=== PATIENT | female | born 1985 | race Caucasian/White ===

== ENCOUNTER 2023-04-27 18:15 | Emergency (ER) | payer OTHER, SELFPAY ==
--- NOTE | ~2023-04-27 | CT_ITS ---
EXAMINATION: CT brain wo con INDICATION: Headache COMPARISON: None TECHNIQUE: Standard unenhanced head CT. The dose-length product (DLP) was 605.33 mGy-cm. The mA was a djusted according to patient size. Iterative reconstruction technique was employed. FINDINGS: There is no intracranial hemorrhage, acute infarction, or abnormal mass lesion. The ventric les are normal. There is no abnormal mass effect or midline shift. The tyson-white matter differentiat ion is normal. The basal cisterns are patent. The orbits are normal. The paranasal sinuses, mastoids and calvarium are normal. IMPRESSION: 1. No acute intracranial abnormality. Reviewed, dictated and finalized at location F.
[2023-04-27 18:29] VITALS: BP 173/106; PULSE 109; RESP 14; TEMP 36.9; O2SAT 100
[2023-04-27 18:47] VITALS: BP 140/100; PULSE 104; RESP 15
[2023-04-27] MEDS: diphenhydrAMINE HCl INJ 50 MG/ML VIAL IV PUSH (19:35)
[2023-04-27] MEDS: KETOROLAC 30 MG/ML VIAL (*BKC) IV PUSH (19:35)
[2023-04-27] MEDS: SODIUM CHLORIDE 0.9% IV 1,000 ML 999 ML IV CONT (19:36)
[2023-04-27] MEDS: PROCHLORPERAZINE EDISYLATE 10 MG/2 ML VIAL IV PUSH (19:36)
[2023-04-27 20:20] LABS: Basophils Percent Auto 0.4 % (0.2-1.2); Eosinophils Absolute Auto 0.1 K/mm3 (0-0.3); Eosinophils Percent Auto 1.1 % (0-4.4); Hematocrit 38.3 % (37.0-47.0); Hemoglobin 12.7 g/dL (12.0-15.0); Immature Granulocyte Absolute 0.02 K/mm3 (0.00-0.031); Immature Granulocyte Percent A 0.2 % (0-0.5); Lymphocytes Absolute Auto 2.28 K/mm3 (0.9-3.2); Lymphocytes Percent Auto 25.1 % (18.3-44.2); Mean Corpuscular HGB Conc 33.2 g/dl (32-36); Mean Corpuscular Hemoglobin 32.8 pg (26-34); Mean Platelet Volume 8.8 fl (7.4-10.4); Monocytes Absolute Auto 0.6 K/mm3 (0.1-0.6); Monocytes Percent Auto 6.8 % (2.6-8.5); Neutrophils Percent Auto 66.4 % (45.5-73.1); Platelet Count Result 322 k/mm3 (150-375); Red Blood Count 3.87 M/mm3 (4.2-5.4); White Blood Count 9.1 K/mm3 (4.5-10.0)
[2023-04-27 20:32] LABS: Alanine Aminotransferase 235 U/L (6-35); Albumin Level 4.6 g/dL (3.5-5.1); Alkaline Phosphatase 47 U/L (38-126); Anion Gap 9 mmol/L (8-16); Aspartate Amino Transferase 225 U/L (14-36); Bilirubin,Total 0.6 mg/dL (0.2-1.3); Blood Urea Nitrogen 10 mg/dL (7-17); Calcium 9.5 mg/dL (8.4-10.2); Carbon Dioxide 22 mmol/L (22-30); Chloride 102 mmol/L (98-107); Estimated CRCL calculation 120 ml/min; Estimated Glomerular Filt Rate > 60; Glucose 89 mg/dL (65-110); Sodium 133 mmol/L (137-145)
[2023-04-27 21:02] LABS: Appearance Urine Clear (Clear); Bilirubin Urine Negative (Negative); Blood Urine Negative (Negative); Color Urine Yellow (Yellow); Glucose Urine UA Negative (Negative); Ketones Urine Negative (Negative); Leukocyte Esterase Ur Negative LEU/UL (Negative); Nitrate Urine Negative (Negative); Protein Urine Negative (Negative); Specific Grav Ur 1.015 (1.001-1.035); Urobilinogen Urine 0.2 mg/dL (<2.0); pH Urine 5.5 (5.0-9.0)
[2023-04-27 21:04] LABS: Add Urine Microscopic? NO
[2023-04-27 21:49] LABS: Pregnancy On Board Control Positive; Urine Pregnancy Test Negative
[2023-04-27 21:50] VITALS: BP 128/82; PULSE 85; RESP 12; O2SAT 96
--- NOTE | 2023-04-27 21:50 | ED.GENADULT ---
HPI - General Adult General Chief complaint: Headache Stated complaint: MAGANA since Monday Time Seen by Provider: 04/27/23 19:14 History of Present Illness HPI narrative: Patient is a 38-year-old female who presents the emergency department with chief complaint of headache. Patient reports she has prior history of migraines and reports that for several days she has had a headache the patient reports this is worse than her typical 1 and reports that she decided to come to the emergency department for evaluation. Patient reports that this morning she did have a little bit of a tingling sensation on her face that has been ongoing since approximately 9 AM this morning patient reports no weakness in her arms or legs denies focal deficit. Related Data Allergies Allergy/AdvReac Type Severity Reaction Status Date / Time Contrast Media Allergy Severe Difficulty Uncoded 04/27/23 18:37 Breathing Review of Systems Review of Systems: A 10 system review of systems was completed on the patient and is negative except for what is stated in the HPI. Nursing and ancillary documentation was reviewed. [facility] Family History Family History Father Hypertension Family history of elevated blood lipids Mother Hypertension Family history of elevated blood lipids Other Diabetes mellitus Social History Social History Smoking status: Never smoker Alcohol intake: never Exam Narrative: GENERAL: Well-appearing, well-nourished, and in no acute distress. HEAD: Normocephalic, atraumatic. EYES: PERRLA and EOMI. ENT: Nares clear, no rhinorrhea or epistaxis. Mucous membranes moist. NECK: Supple. CHEST: Clear to auscultation. No respiratory distress. HEART: Regular rate and rhythm. No murmur heard. Normal peripheral pulses. ABDOMEN: Soft, nontender, nondistended, normal active bowel sounds. EXTREMITIES: Normal range of motion. No edema. SKIN: Warm, dry, no rash. NEURO: No focal deficits. Alert and oriented x3. PSYCH: Normal mood and affect. Course Vital Signs Vital signs: Vital Signs Temperature 36.9 C 04/27/23 18:29 Pulse Rate 109 H 04/27/23 18:29 Respiratory Rate 14 04/27/23 18:29 Blood Pressure 173/106 H 04/27/23 18:29 Pulse Oximetry 100 04/27/23 18:29 Oxygen Delivery Room Air 04/27/23 18:29 Temperature 36.9 C 04/27/23 18:29 Pulse Rate 104 H 04/27/23 18:47 Respiratory Rate 15 04/27/23 18:47 Blood Pressure 140/100 H 04/27/23 18:47 Pulse Oximetry 100 04/27/23 18:29 Oxygen Delivery Room Air 04/27/23 18:29 Medical Decision Making MDM Narrative Medical decision making narrative: Differential diagnosis includes migraine headache, intracranial hemorrhage, electrolyte abnormality, Laboratory studies were obtained on the patient which showed normal CBC and normal CMP patient did have slightly elevated liver enzymes but a normal bilirubin CT head showed no evidence of hemorrhage urinalysis showed no evidence of UTI. Vital Signs Vital Signs: Vital Signs Temperature 36.9 C 04/27/23 18:29 Pulse Rate 109 H 04/27/23 18:29 Respiratory Rate 14 04/27/23 18:29 Blood Pressure 173/106 H 04/27/23 18:29 Pulse Oximetry 100 04/27/23 18:29 Oxygen Delivery Room Air 04/27/23 18:29 Temperature 36.9 C 04/27/23 18:29 Pulse Rate 104 H 04/27/23 18:47 Respiratory Rate 15 04/27/23 18:47 Blood Pressure 140/100 H 04/27/23 18:47 Pulse Oximetry 100 04/27/23 18:29 Oxygen Delivery Room Air 04/27/23 18:29 Lab Data 04/27/23 20:10 04/27/23 20:10 Labs: Lab Results 04/27/23 04/27/23 Range/Units 20:10 20:39 WBC 9.1 (4.5-10.0) K/mm3 RBC 3.87 L (4.2-5.4) M/mm3 Hgb 12.7 (12.0-15.0) g/dL Hct 38.3 (37.0-47.0) % MCV 99.0 (80-100) fl MCH 32.8 (26-34) pg MCHC 33.2 (32-36) g
[2023-04-27 22:08] VITALS: BP 122/80; PULSE 88; RESP 13; O2SAT 100
== END 2023-04-27 22:10 | disposition home or self-care (01) ==
PROVIDERS: Emergency Provider Emergency Medicine
DX: R51.9 Headache, unspecified (principal)
CPT/HCPCS: 36415; 70450; 80053; 81003; 81025; 85025; 96361; 96374; 96375; 99285; J0780; J1200; J1885; J7030